=== PATIENT | male | born 1970 | race Caucasian/White ===

== ENCOUNTER 2023-01-29 16:06 | Emergency (ER) | payer BC, SELFPAY ==
[2023-01-29] VITALS (32 sets, daily range): BP systolic 151–173; BP diastolic 95–126; PULSE 63–81; RESP 12–24; O2SAT 95–99
--- NOTE | 2023-01-29 17:03 | CT_ITS ---
The [address] [address] Patient Name: KIMBERLY HARRIS MRN: [id number] date: 1970 Sex: M Assigned Patient Location: ER Current Patient Location: [facility] Accession/Order Number: [id number] Exam Date: 01/29/2023 16:56 Report Date: 01/29/2023 17:51 At the request of: LESTER DAMICO Procedure: CT head/brain wo con CT head/brain wo con, 01/29/2023 1:56 PM PDT INDICATION: dizziness COMPARISON: None. TECHNIQUE: Axial CT images of the brain from skull base to vertex, including portions of the face and sinuses, were obtained without contrast. Multiplanar reformatted images were generated and reviewed as needed. Dose reduction techniques were achieved by using automated exposure control and/or adjustment of mA and/or kV according to patient size and/or use of iterative reconstruction technique. FINDINGS: CEREBRUM: No edema, hemorrhage, mass, acute infarction, or inappropriate atrophy. CEREBELLUM: No edema, hemorrhage, mass, acute infarction, or inappropriate atrophy. BRAINSTEM: No acute infarct, hemorrhage or gross structural abnormality. CSF SPACES: Ventricles, cisterns, and sulci are appropriate for age. No hydrocephalus, subarachnoid hemorrhage, or mass. SKULL: No mass or other significant visible lesion. SINUSES: There is mucosal thickening within the left maxillary sinus and ethmoid air cells. ORBITS: Limited views are unremarkable. OTHER: None. CT/CT head/brain wo con IMPRESSION: Left maxillary and ethmoid sinusitis. No acute intracranial abnormality is identified. Electronically authenticated by: Debbie HOLLOWAY Date: 01/29/2023 17:51
--- NOTE | 2023-01-29 17:19 | ED_ITS ---
Chart reviewed due to [facility] call about scripts. Documented by User: Nubia Pierre 01/29/23 21:10 HPI - General Adult General Chief complaint: Dizziness Stated complaint: dizziness/vomitting, hypertension Time Seen by Provider: 01/29/23 16:53 Source: patient and family Mode of arrival: Wheelchair Limitations: no limitations History of Present Illness HPI narrative: 52 year old male presents to the ED for dizziness, N/V. Onset was today. Reports right ear fullness. States it seems as if the room is spinning. Reports a mild right-sided headache. Denies fever, chills, vision changes, weakness. Denies CP, cough, SOB, back pain. Denies sinus congestion, sore throat. Reports hx borderline HTN; he does not take medication for HTN. Rates his pain 2/10 at this time. Related Data Previous Rx's Medication Instructions Recorded amlodipine 5 mg tablet (Norvasc) 5 mg PO DAILY #14 tabs 01/29/23 amoxicillin 500 mg capsule 500 mg PO BID 10 days #20 caps 01/29/23 meclizine 25 mg tablet 25 mg PO TID PRN dizziness or 01/29/23 vertigo #14 tabs ondansetron 4 mg disintegrating 4 mg PO Q8H PRN nausea and 01/29/23 tablet vomiting 4 days #10 tabs Allergies Allergy/AdvReac Type Severity Reaction Status Date / Time No Known Drug Allergies Allergy Verified 01/29/23 16:25 Review of Systems ROS Constitutional Denies: fever or chills Eyes Denies: change in vision or blurry vision Ears, nose, mouth, and throat Reports: change in hearing (Muffled yesterday) and tinnitus (Right ear for many years.); Denies: throat pain, neck pain, difficulty swallowing, ear pain, ear discharge or nasal congestion Cardiovascular Denies: chest pain or palpitations Respiratory Denies: shortness of breath or cough Gastrointestinal Reports: nausea and vomiting; Denies: abdominal pain or diarrhea Musculoskeletal Denies: back pain Neurological Reports: headache and dizziness; Denies: numbness in extremities, weakness in extremities, lack of coordination, confusion, behavioral changes or slurred speech Endocrine Denies: fatigue Exam Constitutional Vital Signs, click to edit/add: Last Vital Signs Pulse 79 01/29/23 20:01 Resp 19 01/29/23 20:01 BP 167/104 H 01/29/23 20:10 Pulse Ox 98 01/29/23 20:01 O2 Del Method Room Air 01/29/23 16:25 Common normals: no apparent distress and oriented x3 Exam limitations: altered mental status General appearance: cooperative and comfortable; not ill appearing [facility] Common normals: normocephalic, external ears normal, TMs normal bilaterally and moist oral mucous membranes Head and scalp: normal to inspection Face and sinus: normal facial exam and face symmetric Mouth: lip normal and tongue normal; no drooling Eye Common normals: PERRL, EOMs intact bilaterally, conjunctivae normal and no scleral icterus Chest Chest: symmetrical chest wall rise Respiratory Common normals: normal respiratory effort Effort & inspection: able to speak in complete sentences and symmetric chest movement Cardio Common normals: regular rate and regular rhythm Extremity Common normals: normal to inspection, full ROM and normal capillary refill Neuro Common normals: oriented x3, CN's II-XII intact bilaterally, moves all extremities, no focal motor deficits and no sensory deficits noted Sensorium/orientation: awake and alert Coordination/balance: [id number] test normal and [id number] test normal Motor exam: strength 5/5 throughout Course Vital Signs Vital signs: Vital Signs Pulse Rate 73 01/29/23 16:25 Respiratory Rate 18 01/29/23 16:25 Blood Pressure 173/112 H 01/29/23 16:25 Pulse Oximetry 99 01/29/23 16:25 Oxygen Delivery Method Room Air 01/29/23 16:25 Pulse Rate 79 01/29/23 20:01 Respiratory Rate 19 01/29/23 20:01 Blood Pressure 167/104 H 01/29/23 20:10 Pulse Oximetry 98 01/29/23 20:01 Oxygen Delivery Method Room Air 01/29/23 16:25 Medical Decision Making MDM Narrative Medical decision making narrative: CT scan of the head showed concerns for sinusitis. Chest x-ray was negative for acute findings. Laboratory studies were unremarkable, including 2 negative troponin levels. He was given medication here with improvement in his sx and BP. He does not take BP medication. He has not been evaluated by his pcp in some time, but has an appointment in 7 days. Prescriptions were provided for Antivert, Zofran, amoxicillin, and Norvasc. Follow up with pcp as scheduled. Return precautions were discussed. Family was present for a ride home. Lab Data Lab results reviewed: Yes I reviewed the patient's lab results Labs: Lab Results 01/29/23 01/29/23 Range/Units 17:09 19:09 WBC 14.2 H (4.0-11.0) 10^3/uL RBC 5.91 (4.70-6.10) 10^6/uL Hgb 17.6 (14.0-18.0) g/dL Hct 49.1 (42.0-54.0) % MCV 83.1 (80.0-94.0) fL MCH 29.8 (25.9-34.0) pg MCHC 35.8 H (29.9-35.2) g/dL RDW 12.1 (11.0-15.0) % Plt Count 231 (150-450) 10^3/uL MPV 9.7 (9.5-13.5) fL Neut % (Auto) 83.9 H (43.0-75.0) % Lymph % (Auto) 7.8 L (20.5-60.0) % [place] % (Auto) 6.9 (1.7-12.0) % Eos % (Auto) 0.4 L (0.9-7.0) % Baso % (Auto) 0.4 (0.2-2.0) % Neut # (Auto) 11.9 H (1.4-6.5) 10^3/uL Lymph # (Auto) 1.1 L (1.2-3.8) 10^3/uL [place] # (Auto) 1.0 H (0.3-0.8) 10^3/uL Eos # (Auto) 0.1 (0.0-0.7) 10^3/uL Baso # (Auto) 0.1 (0.0-0.1) 10^3/uL Abs Immat Gran (auto) 0.09 H (0.00-0.03) 10^3/uL Imm/Tot Granulo (auto) 0.6 H (0.0-0.5) % Sodium 141 (136-145) mmol/L Potassium 3.9 (3.5-5.1) mmol/L Chloride 103 (98-107) mmol/L Carbon Dioxide 26.3 (21.0-32.0) mmol/L Anion Gap 15.6 BUN 15.0 (7.0-18.0) mg/dL Creatinine 1.09 (0.70-1.30) mg/dL Est GFR ( Amer) >60 (>=60) Est GFR (Non-Af Amer) >60 (>=60) BUN/Creatinine Ratio 13.8 Glucose 160 H (74-106) mg/dL Calcium 9.5 (8.5-10.1) mg/dL Total Bilirubin 0.8 (0.2-1.0) mg/dL AST 22 (15-37) U/L ALT 45 (16-63) U/L Alkaline Phosphatase 77 (46-116) U/L Troponin I High Sens 4.5 5.3 (4.0-76.1) pg/mL Total Protein 7.8 (6.4-8.2) g/dL Albumin 4.2 (3.4-5.0) g/dL Globulin 3.6 g/dL Albumin/Globulin Ratio 1.[address] scan - head: Attestation: I have reviewed the pertinent imaging results. Radiologist's impression: Procedure: CT head/brain wo con CT head/brain wo con, 01/29/2023 1:56 PM PDT INDICATION: dizziness COMPARISON: None. TECHNIQUE: Axial CT images of the brain from skull base to vertex, including portions of the face and sinuses, were obtained without contrast. Multiplanar reformatted images were generated and reviewed as needed. Dose reduction techniques were achieved by using automated exposure control and/or adjustment of mA and/or kV according to patient size and/or use of iterative reconstruction technique. FINDINGS: CEREBRUM: No edema, hemorrhage, mass, acute infarction, or inappropriate atrophy. CEREBELLUM: No edema, hemorrhage, mass, acute infarction, or inappropriate atrophy. BRAINSTEM: No acute infarct, hemorrhage or gross structural abnormality. CSF SPACES: Ventricles, cisterns, and sulci are appropriate for age. No hydrocephalus, subarachnoid hemorrhage, or mass. SKULL: No mass or other significant visible lesion. SINUSES: There is mucosal thickening within the left maxillary sinus and ethmoid air cells. ORBITS: Limited views are unremarkable. OTHER: None. CT/CT head/brain wo con IMPRESSION: Left maxillary and ethmoid sinusitis. No acute intracranial abnormality is identified. Electronically authenticated by: Debbie HOLLOWAY Date: 01/29/2023 17:51 Chest x-ray: Attestation: I have reviewed the pertinent imaging results. Radiologist's impression: Procedure: XR chest 1V EXAM: XR chest 1V HISTORY: HTN, dizziness COMPARISON: None. TECHNIQUE: AP portable study FINDINGS: There is relative elevation of the right hemidiaphragm. The visualized lung bush are otherwise well-expanded and clear. The cardiovascular silhouette is normal. Bony structures are unremarkable. XR/XR chest 1V IMPRESSION: No evidence for acute cardiopulmonary disease. Electronically authenticated by: Debbie HOLLOWAY Date: 01/29/2023 19:06 ECG Data Attestation: ?I have reviewed the pertinent ECG results. (EKG was reviewed by the attending physician. It showed sinus rhythm at a rate of 68 with incomplete RBBB. No acute ST elevation. ) Interpretation: Measurements Intervals [place] Rate: 68 P: 58 MS: 160 QRS: 54 QRSD: 102 T: -54 QT: 406 QTc: 424 Interpretive Statements 1100 Sinus rhythm 2440 Incomplete right bundle branch block 4564 Twave abnormality, possible lateral ischemia 4664 Twave abnormality, possible inferior ischemia 9150 abnormal ECG No previous ECG available for comparison Discharge Plan Discharge Chief Complaint: Dizziness Clinical Impression: Elevated blood pressure reading, Dizziness, Sinusitis Patient Disposition: Home, Self-Care Time of Disposition Decision: 19:48 Condition: Good Mode of Transportation: Private Vehicle Prescriptions / Home Meds: New meclizine 25 mg tablet 25 mg PO TID PRN (Reason: dizziness or vertigo) Qty: 14 0RF ondansetron 4 mg tablet,disintegrating 4 mg PO Q8H PRN (Reason: nausea and vomiting) 4 Days Qty: 10 0RF amoxicillin 500 mg capsule 500 mg PO BID 10 Days Qty: 20 0RF amlodipine [Norvasc] 5 mg tablet 5 mg PO DAILY Qty: 14 0RF Instructions: Sinusitis (ED), Vertigo (ED), Hypertension (ED), Dizziness (ED) Additional Instructions: Follow up with your family physician on Sunday as scheduled. Return to the ER if your condition worsens. Stand Alone Forms: Portal Instructions Referrals: Physician,Non-Staff, [Physician] - 1 week Discharge Date/Time: 01/29/23 20:26 Documented by User: Jacqueline Aguilera MD 01/31/23 08:03 HPI - General Adult General Chief complaint: Dizziness Stated complaint: dizziness/vomitting, hypertension Time Seen by Provider: 01/29/23 16:53 Related Data Previous Rx's Medication Instructions Recorded amlodipine 5 mg tablet (Norvasc) 5 mg PO DAILY #14 tabs 01/29/23 amoxicillin 500 mg capsule 500 mg PO BID 10 days #20 caps 01/29/23 meclizine 25 mg tablet 25 mg PO TID PRN dizziness or 01/29/23 vertigo #14 tabs ondansetron 4 mg disintegrating 4 mg PO Q8H PRN nausea and 01/29/23 tablet vomiting 4 days #10 tabs Allergies Allergy/AdvReac Type Severity Reaction Status Date / Time No Known Drug Allergies Allergy Verified 01/29/23 16:25 Exam Constitutional Vital Signs, click to edit/add: Last Vital Signs Pulse 79 01/29/23 20:01 Resp 19 01/29/23 20:01 BP 167/104 H 01/29/23 20:10 Pulse Ox 98 01/29/23 20:01 O2 Del Method Room Air 01/29/23 16:25 Course Vital Signs Vital signs: Vital Signs Pulse Rate 73 01/29/23 16:25 Respiratory Rate 18 01/29/23 16:25 Blood Pressure 173/112 H 01/29/23 16:25 Pulse Oximetry 99 01/29/23 16:25 Oxygen Delivery Method Room Air 01/29/23 16:25 Pulse Rate 79 01/29/23 20:01 Respiratory Rate 19 01/29/23 20:01 Blood Pressure 167/104 H 01/29/23 20:10 Pulse Oximetry 98 01/29/23 20:01 Oxygen Delivery Method Room Air 01/29/23 16:25 Medical Decision Making MDM Narrative Medical decision making narrative: CT scan of the head showed concerns for sinusitis. Chest x-ray was negative for acute findings. Laboratory studies were unremarkable, including 2 negative troponin levels. He was given medication here with improvement in his sx and BP. He does not take BP medication. He has not been evaluated by his pcp in some time, but has an appointment in 7 days. Prescriptions were provided for Antivert, Zofran, amoxicillin, and Norvasc. Follow up with pcp as scheduled. Return precautions were discussed. Family was present for a ride home. Attending physician attestation I have reviewed the mid-level documentation, agree with the documentation, medical decision making and treatment plan as outlined by the mid-level provider. Lab Data Labs: Lab Results 01/29/23 01/29/23 Range/Units 17:09 19:09 WBC 14.2 H (4.0-11.0) 10^3/uL RBC 5.91 (4.70-6.10) 10^6/uL Hgb 17.6 (14.0-18.0) g/dL Hct 49.1 (42.0-54.0) % MCV 83.1 (80.0-94.0) fL MCH 29.8 (25.9-34.0) pg MCHC 35.8 H (29.9-35.2) g/dL RDW 12.1 (11.0-15.0) % Plt Count 231 (150-450) 10^3/uL MPV 9.7 (9.5-13.5) fL Neut % (Auto) 83.9 H (43.0-75.0) % Lymph % (Auto) 7.8 L (20.5-60.0) % [place] % (Auto) 6.9 (1.7-12.0) % Eos % (Auto) 0.4 L (0.9-7.0) % Baso % (Auto) 0.4 (0.2-2.0) % Neut # (Auto) 11.9 H (1.4-6.5) 10^3/uL Lymph # (Auto) 1.1 L (1.2-3.8) 10^3/uL [place] # (Auto) 1.0 H (0.3-0.8) 10^3/uL Eos # (Auto) 0.1 (0.0-0.7) 10^3/uL Baso # (Auto) 0.1 (0.0-0.1) 10^3/uL Abs Immat Gran (auto) 0.09 H (0.00-0.03) 10^3/uL Imm/Tot Granulo (auto) 0.6 H (0.0-0.5) % Sodium 141 (136-145) mmol/L Potassium 3.9 (3.5-5.1) mmol/L Chloride 103 (98-107) mmol/L Carbon Dioxide 26.3 (21.0-32.0) mmol/L Anion Gap 15.6 BUN 15.0 (7.0-18.0) mg/dL Creatinine 1.09 (0.70-1.30) mg/dL Est GFR ( Amer) >60 (>=60) Est GFR (Non-Af Amer) >60 (>=60) BUN/Creatinine Ratio 13.8 Glucose 160 H (74-106) mg/dL Calcium 9.5 (8.5-10.1) mg/dL Total Bilirubin 0.8 (0.2-1.0) mg/dL AST 22 (15-37) U/L ALT 45 (16-63) U/L Alkaline Phosphatase 77 (46-116) U/L Troponin I High Sens 4.5 5.3 (4.0-76.1) pg/mL Total Protein 7.8 (6.4-8.2) g/dL Albumin 4.2 (3.4-5.0) g/dL Globulin 3.6 g/dL Albumin/Globulin Ratio 1.2 Discharge Plan Discharge Chief Complaint: Dizziness Clinical Impression: Elevated blood pressure reading, Dizziness, Sinusitis Patient Disposition: Home, Self-Care Time of Disposition Decision: 19:48 Condition: Good Mode of Transportation: Private Vehicle Prescriptions / Home Meds: New meclizine 25 mg tablet 25 mg PO TID PRN (Reason: dizziness or vertigo) Qty: 14 0RF ondansetron 4 mg tablet,disintegrating 4 mg PO Q8H PRN (Reason: nausea and vomiting) 4 Days Qty: 10 0RF amoxicillin 500 mg capsule 500 mg PO BID 10 Days Qty: 20 0RF amlodipine [Norvasc] 5 mg tablet 5 mg PO DAILY Qty: 14 0RF Instructions: Sinusitis (ED), Vertigo (ED), Hypertension (ED), Dizziness (ED) Additional Instructions: Follow up with your family physician on Sunday as scheduled. Return to the ER if your condition worsens. Stand Alone Forms: Portal Instructions Referrals: Physician,Non-Staff, [Physician] - 1 week Discharge Date/Time: 01/29/23 20:26
[2023-01-29 17:38] LABS: Basophils Absolute Auto 0.1 10^3/uL (0.0-0.1); Basophils Percent Auto 0.4 % (0.2-2.0); Eosinophils Absolute Auto 0.1 10^3/uL (0.0-0.7); Eosinophils Percent Auto 0.4 % (0.9-7.0); Hematocrit 49.1 % (42.0-54.0); Hemoglobin 17.6 g/dL (14.0-18.0); Immature Granulocytes Abs Auto 0.09 10^3/uL (0.00-0.03); Immature Granulocytes Pct Auto 0.6 % (0.0-0.5); Lymphocytes Absolute Auto 1.1 10^3/uL (1.2-3.8); Lymphocytes Percent Auto 7.8 % (20.5-60.0); Mean Corpuscular HGB Conc 35.8 g/dL (29.9-35.2); Mean Corpuscular Hemoglobin 29.8 pg (25.9-34.0); Mean Corpuscular Volume 83.1 fL (80.0-94.0); Mean Platelet Volume 9.7 fL (9.5-13.5); Monocytes Percent Auto 6.9 % (1.7-12.0); Neutrophils Absolute Auto 11.9 10^3/uL (1.4-6.5); Neutrophils Percent Auto 83.9 % (43.0-75.0); Platelet Count 231 10^3/uL (150-450); Red Blood Count 5.91 10^6/uL (4.70-6.10); Red Cell Distribution Width 12.1 % (11.0-15.0); White Blood Count 14.2 10^3/uL (4.0-11.0)
[2023-01-29] MEDS: ONDANSETRON PF 4 MG/2 ML VIAL IV (17:39)
[2023-01-29] MEDS: 0.9 % SODIUM CHLORIDE 1,000 ML 1000 ML IV (17:39)
[2023-01-29 17:51] LABS: Alanine Aminotransferase 45 U/L (16-63); Albumin Globulin Ratio 1.2; Albumin Level 4.2 g/dL (3.4-5.0); Alkaline Phosphatase 77 U/L (46-116); Anion Gap 15.6; Aspartate Amino Transferase 22 U/L (15-37); BUN Creatinine Ratio 13.8; Bilirubin Total 0.8 mg/dL (0.2-1.0); Calcium 9.5 mg/dL (8.5-10.1); Carbon Dioxide 26.3 mmol/L (21.0-32.0); Chloride 103 mmol/L (98-107); Estimated GFR (African America >60 (>=60); Estimated GFR (Non-African Ame >60 (>=60); Globulin 3.6 g/dL; Glucose 160 mg/dL (74-106); Potassium 3.9 mmol/L (3.5-5.1); Sodium 141 mmol/L (136-145); Total Protein 7.8 g/dL (6.4-8.2); Troponin I High Sensitivity 4.5 pg/mL (4.0-76.1)
--- NOTE | 2023-01-29 17:56 | ECG_ITS ---
The [facility] Test Date: 2023-01-29 Pat Name: KIMBERLY HARRIS Department: Room: - Gender: Male [employer]: : 1970 Requested By: Order Number: [id number] Reading MD: GERALDO SANDERS Measurements Intervals [address] Rate: 68 P: 58 MI: 160 QRS: 54 QRSD: 102 T: -54 QT: 406 QTc: 424 Interpretive Statements 1100 Sinus rhythm 2440 Incomplete right bundle branch block T wave changes, can't exclude inferolateral ischemia 9150 abnormal ECG No previous ECG available for comparison Electronically Signed On 01-30-2023 7:15:49 EDT by GERALDO SANDERS
--- NOTE | 2023-01-29 18:37 | XR_ITS ---
The [address] [address] Patient Name: KIMBERLY HARRIS MRN: [id number] date: 1970 Sex: M Assigned Patient Location: ER Current Patient Location: ED.MAIN Accession/Order Number: [id number] Exam Date: 01/29/2023 18:30 Report Date: 01/29/2023 19:06 At the request of: SUZY REN Procedure: XR chest 1V EXAM: XR chest 1V HISTORY: HTN, dizziness COMPARISON: None. TECHNIQUE: AP portable study FINDINGS: There is relative elevation of the right hemidiaphragm. The visualized lung bush are otherwise well-expanded and clear. The cardiovascular silhouette is normal. Bony structures are unremarkable. XR/XR chest 1V IMPRESSION: No evidence for acute cardiopulmonary disease. Electronically authenticated by: Debbie HOLLOWAY Date: 01/29/2023 19:06
[2023-01-29] MEDS: MECLIZINE HCL 12.5 MG TABLET 25 MG PO (18:46)
[2023-01-29] MEDS: HYDRALAZINE HCL 20 MG/ML VIAL 10 MG IVP (19:05)
[2023-01-29] MEDS: DIAZEPAM 5 MG/ML - 2 ML INJ SYRINGE IV (19:06)
[2023-01-29 19:41] LABS: Troponin I High Sensitivity 5.3 pg/mL (4.0-76.1)
[2023-01-29] MEDS: AMOXICILLIN 500 MG CAPSULE PO (20:10)
[2023-01-29] MEDS: AMLODIPINE BESYLATE 5 MG TABLET PO (20:10)
== END 2023-01-29 20:26 | disposition home or self-care (01) ==
PROVIDERS: Nurse Practitioner Family; Emergency Provider Emergency Medicine; PCP Family Medicine
DX: R42 Dizziness and giddiness (principal); I10 Essential (primary) hypertension; J32.9 Chronic sinusitis, unspecified
CPT/HCPCS: 36415; 70450; 71045; 80053; 84484; 85025; 93005; 96361; 96374; 96375; 99285

== ENCOUNTER 2023-07-27 09:31 | Outpatient (OUT) | payer BC, SELFPAY ==
--- NOTE | 2023-07-27 09:46 | MR_ITS ---
The [address] [address] Patient Name: KIMBERLY HARRIS MRN: [id number] date: 1970 Sex: M Assigned Patient Location: MRI Current Patient Location: MRI Accession/Order Number: [id number] Exam Date: 07/27/2023 10:00 Report Date: 07/27/2023 11:23 At the request of: AGUSTÍN MCDANIELS Procedure: MR head/brain wo/w con MRI BRAIN WITH AND WITHOUT CONTRAST; 07/27/2023 10:00 AM EST History:Sensorinerural Hearing Loss Right Ear H90.41 Comparison: None available . SEQUENCES: Per IAC protocol STUDY QUALITY: Good No evidence of acute infarction. No restricted diffusion. A few punctate scattered foci of T2 and T2 FLAIR hyperintensity in the cerebral white matter is likely simply normal for age. No evidence of intra-axial mass or mass effect. No abnormal intra-axial enhancement. VESSELS: Signal voids are present in the major intracranial blood vessels. BRAIN VOLUME: Normal for age. VENTRICLES: No hydrocephalus. ORBITS: No acute findings. SELLA/ SUPRASELLAR: No acute findings at relatively thick sections. CP ANGLES: No evidence of a mass or abnormal enhancement in either CP angle or IAC. The structures of the inner ears are grossly symmetric and unremarkable in appearance at MRI. There is no unexpected signal or enhancement at the expected locations of the middle ear cavities. UPPER CERVICAL: No acute findings. PARANASAL SINUSES: Air-fluid level right maxillary antrum greater than in the left maxillary antrum. Modest disease in the ethmoids bilaterally. MASTOIDS: Essentially clear at MRI CALVARIUM: No acute findings. OTHER: None. MR/MR head/brain wo/w con IMPRESSION: 1. No evidence of a mass or abnormal enhancement in either CP angle or IAC. 2. No evidence of acute intra-axial process. 3. Some paranasal sinus disease, including what may be an acute component in both maxillary antra, right greater than left. Electronically authenticated by: YASMANY MANZO Date: 07/27/2023 11:23
== END 2023-07-27 09:32 | disposition home or self-care (01) ==
LOC: MRI 09:32
PROVIDERS: PCP Family Medicine; Visit Provider Otolaryngology
DX: H93.12 Tinnitus, left ear (principal); H92.02 Otalgia, left ear; H90.3 Sensorineural hearing loss, bilateral
CPT/HCPCS: 70553; A9575